=== PATIENT | female | born 1980 | race Caucasian/White ===

== ENCOUNTER 2016-11-20 09:01 | Day surgery (SDC) | payer BC ==
[2016-11-20] VITALS (8 sets, daily range): BP systolic 101–122; BP diastolic 63–84; PULSE 92–100; RESP 12–16; Ht 157.5 cm; Wt 67.6 kg
[~2016-11-20] VITALS: Ht 157.5 cm; Wt 67.6 kg
[2016-11-20] MEDS ORDERED: GLIP-95 PO (09:41)
[2016-11-20] MEDS ORDERED: METF1000 PO (09:41)
[2016-11-20] MEDS ORDERED: ASPI325T4 PO (09:42)
[2016-11-20] MEDS ORDERED: CEFAZOLIN 1 GM/50 ML (PMX) 50 ML IVPB SCH (10:00)
[2016-11-20] MEDS ORDERED: LACTATED RINGER'S 1,000 ML IV SCH (10:00)
[2016-11-20] MEDS ORDERED: INSULIN ASPART [NOVOLOG] 3 ML PEN SC ONE ×2 (10:30→12:00)
--- NOTE | 2016-11-20 10:53 | HPN ---
Date/Time of Note Date/Time of Note DATE: 11/20/16 TIME: 10:53 Interval H&P Admission Note Pt. seen H&P reviewed: No system changes GRAYSON LEWIS DPM Nov 20, 2016 10:53
[2016-11-20] MEDS ORDERED: HYDROCODONE/APAP (10/325) TAB PO PRN (11:00)
[2016-11-20] MEDS ORDERED: ONDANSETRON (ODT) 4 MG TAB ODT PRN (11:00)
[2016-11-20] MEDS ORDERED: PROPOFOL 20 ML ONE (11:04)
[2016-11-20] MEDS ORDERED: LIDOCAINE 2% (SDV) 5 ML INJ ONE (11:04)
[2016-11-20] MEDS ORDERED: MIDAZOLAM 1 MG/ML 2 ML INJ ONE (11:05)
[2016-11-20] MEDS ORDERED: FENTAnyl 50 MCG/ML VIAL ONE (11:05)
[2016-11-20] MEDS ORDERED: CEFAZOLIN 1 GM INJ ONE (11:13)
[2016-11-20] MEDS ORDERED: BUPIVACAINE 0.5% (SDV) 30 ML INJ ONE (11:18)
[2016-11-20] MEDS ORDERED: METOCLOPRAMIDE 10 MG INJ ONE (11:30)
[2016-11-20] MEDS ORDERED: ONDANSETRON 4 MG INJ ONE (11:30)
[2016-11-20] MEDS ORDERED: FAMOTIDINE 20 MG INJ ONE (11:31)
[2016-11-20] MEDS ORDERED: HYDROmorphONE 2 MG/ML SYG ONE (11:38)
[2016-11-20] MEDS ORDERED: PROPOFOL 40 ML ONE (11:49)
[2016-11-20] MEDS ORDERED: HYDROmorphONE (0.2 MG/ML) 10ML SYG IV PRN (12:00)
[2016-11-20] MEDS ORDERED: OXYCODONE/ACETAMINOPHEN (5/325) TAB PO PRN (12:00)
[2016-11-20] MEDS ORDERED: MEPERIDINE 25 MG INJ IV PRN (12:00)
[2016-11-20] MEDS ORDERED: DIPHENHYDRAMINE 50 MG INJ IV PRN (12:00)
[2016-11-20] MEDS ORDERED: FENTAnyl 50 MCG/ML VIAL IV PRN (12:00)
[2016-11-20] MEDS ORDERED: PROCHLORPERAZINE 10 MG INJ IV PRN (12:00)
[2016-11-20] MEDS ORDERED: ONDANSETRON 4 MG INJ IV PRN (12:00)
--- NOTE | 2016-11-20 14:48 | OPR ---
DATE OF OPERATION: 11/20/2016 PREOPERATIVE DIAGNOSIS: Right foot bunion deformity with hallux abductovalgus deformity. POSTOPERATIVE DIAGNOSIS: Right foot bunion deformity with hallux abductovalgus deformity. ANESTHESIA: General. OPERATION: The patient was brought into the OR, and approximately 10 mL of 0.5% plain Marcaine was utilized circumferentially around the first metatarsophalangeal joint of the right foot. After anes thesia was achieved, the area was prepped and draped in the usual sterile fashion. Tourniquet was a pplied, and the foot and ankle were exsanguinated and tourniquet inflated to approximately 250 mmHg. Attention was then directed to the dorsomedial aspect where a 5 cm incision was performed. Sharp and blunt dissection were achieved. Bleeding vessels were ligated. Nervous tissue was retracted. A #15 blade was utilized to go down to the capsular region. A linear capsulotomy was then performed . Capsular tissue was reflected, and the bunion deformity was in clear view. Utilizing a sagittal saw, the bunion deformity was removed. The area was inspected. A classical lateral capsulotomy was then performed. The inspection was then done of the medial aspect of the first metatarsal. There were osteoarthritic changes noted dorsally. These were removed with a bony rongeur. The sagittal s aw was then utilized to perform a modified [employer] osteotomy. The capital fragment was then moved l aterally and impacted onto the remaining stalk. The capital fragment was secured with a 0.045 K-wir e. Also, a 0.04 K-wire was utilized perpendicular to the osteotomy site. The area was inspected. It was attempted to utilize the screw fixation. The dorsal wing of the osteotomy was friable and cr acked. We then had to switch to utilizing staple fixation. A #10 staple was chosen. It was driven medially and with excellent compression and alignment of the capital fragment on the remaining stal k. To ensure stability, #12 staple was then utilized dorsally. The gapping region where the friabl e tissue had been was removed and was filled with DBM. Prior to filling with DBM, the area was copi ously lavaged with antibiotic solution. There was excellent alignment and approximation noted of th e osteotomy site and the procedure area. The joint space moved unencumbered. All tendinous structu res remained intact. The capsular tissue was then remodeled, removing redundant hypertrophic capsul ar tissue. A 2-0 Vicryl suture was then utilized to coapt the capsular tissue. Then 3-0 Vicryl was utilized to secure the subcutaneous tissue, and 3-0 nylon was utilized for the skin. The area was then injected with approximately 7 mL of 0.5% plain Marcaine. The dressing of Adaptic, 4 x 4's, rol led gauze, Coban, and elastic wrap was then utilized. Tourniquet was released, and normoactive hype remia was noted to all the digits of the right foot. This patient tolerated the procedure well and left the OR in stable condition. Dictated By: GRAYSON CANCHOLA/ANYI Conf#: [id number] DID#: [id number]
--- NOTE | 2016-11-20 16:04 | RADRPT ---
PROCEDURE: XR Foot 3 Views. CLINICAL INDICATION: Right foot pain, postop. TECHNIQUE: AP, oblique and lateral views of the right foot were obtained. The images were reviewe d on a PACS workstation. COMPARISON: None. FINDINGS: Bone jose miguel are identified in the head of the first metatarsal. The osseous structures appear inta ct. No destructive bony lesions are identified. Interosseous spaces are normal. Small Achilles ins ertion heel spur is seen. Soft tissue gas over the head of the first metatarsal as likely related to recent intervention. IMPRESSION: Bone jose miguel in the head of the first metatarsal. Small Achilles insertion heel spur. RPTAT: AA .Benedicto Swanson MD, Date Time Electronically viewed and signed by .Benedicto Swanson MD, on 11/20/2016 16:04 .P/
== END 2016-11-20 14:20 | disposition home or self-care (01) ==
LOC: SDS 09:01
PROVIDERS: ATTEND Podiatrist Foot & Ankle Surgery
DX: M20.11 Hallux valgus (acquired), right foot (principal); M21.611 Bunion of right foot; E11.9 Type 2 diabetes mellitus without complications; E78.5 Hyperlipidemia, unspecified
CPT/HCPCS: 28296; 73630; 82962; 88304; 88311; C1713; J0690; J1170; J1815; J2250; J2405; J2765; J3010; Z7512; Z7610